=== PATIENT | female | born 1970 | race Asian ===

== ENCOUNTER 2017-02-26 08:04 | Inpatient (IN) | payer OTHER ==
[~2017-02-26] VITALS: Ht 162.6 cm; Wt 73.0 kg
[2017-02-26 09:10] LABS: BASOPHIL % 0.2 % (0-2); PLATELET COUNT 217 x10^3mcL (130-400); RED CELL DISTRIBUTION WIDTH 13.2 % (11.5-14.5)
[2017-02-26 09:12] LABS: microscopic required? NO
[2017-02-26 09:13] LABS: CALCIUM 9.1 mg/dL (8.5-10.1); CARBON DIOXIDE 23.6 mmol/L (21-32); CHLORIDE SERUM 105 mmol/L (98-107); CREATININE SERUM 0.5 mg/dL (0.6-1.0); GFR1 > 60 mL/min; GLUCOSE SERUM 144 mg/dL (74-106); POTASSIUM SERUM 3.5 mmol/L (3.5-5.1); SODIUM SERUM 135 mmol/L (136-145)
[2017-02-26] MEDS ORDERED: GEMFIBROZIL600 MG PO (09:23)
[2017-02-26] MEDS ORDERED: LITHIUM CARBON300 MG PO (09:24)
[2017-02-26] MEDS ORDERED: SEROQUEL XR200 M1 PO (09:25)
[2017-02-26] MEDS ORDERED: VENLAFAXINE HY150 MG PO (09:25)
[2017-02-26] MEDS ORDERED: ASPIR LOW81 MG PO (09:25)
[2017-02-26] MEDS ORDERED: ACT15 PO (09:26)
[2017-02-26 09:36] LABS: urine erythrocyte NEGATIVE (NEGATIVE)
[2017-02-26 09:39] LABS: AMPHETAMINE QUAL UR NONE DETECTED (NEG <=1000)
[2017-02-26 12:00] LABS: MAGNESIUM 1.8 mg/dL (1.8-2.4); PHOSPHOROUS 3.8 mg/dL (2.5-4.9)
[2017-02-26 12:04] LABS: CHOLESTEROL/HDL RATIO 2.3
[2017-02-26 12:28] LABS: FREE T4 0.83 ng/dL (0.76-1.46); T4(THYROXINE) 6.2 ug/dL (4.7-13.3)
[2017-02-26 12:33] LABS: T3 TOTAL 0.9 ng/mL
[2017-02-26 12:50] VITALS: BP 99/69
[2017-02-26] MEDS ORDERED: EPZICOM1 TAB (17:47)
[2017-02-26] MEDS ORDERED: LANTUS SOLOS100 U/M1 SQ (17:47)
[2017-02-26 18:26] VITALS: BP 134/81
[2017-02-26 19:15] VITALS: BP 141/92
[2017-02-26 23:40] VITALS: BP 115/79
[2017-02-27 03:35] VITALS: BP 133/65
[2017-02-27 04:29] LABS: BASOPHIL % 0.1 % (0-2); PLATELET COUNT 224 x10^3mcL (130-400); RED CELL DISTRIBUTION WIDTH 13.1 % (11.5-14.5)
[2017-02-27 04:35] LABS: CALCIUM 8.6 mg/dL (8.5-10.1); CARBON DIOXIDE 24.8 mmol/L (21-32); CHLORIDE SERUM 109 mmol/L (98-107); CREATININE SERUM 0.5 mg/dL (0.6-1.0); GFR1 > 60 mL/min; GLUCOSE SERUM 157 mg/dL (74-106); MAGNESIUM 1.8 mg/dL (1.8-2.4); POTASSIUM SERUM 3.9 mmol/L (3.5-5.1); SODIUM SERUM 137 mmol/L (136-145)
[2017-02-27 07:48] VITALS: BP 130/89
[2017-02-27 08:36] VITALS: Ht 162.6 cm; Wt 73.0 kg
[2017-02-27 12:30] VITALS: BP 112/87
[2017-02-27 15:13] VITALS: BP 166/97
[2017-02-27] MEDS ORDERED: GEMFIBROZIL600 MG PO (16:59)
[2017-02-27] MEDS ORDERED: SEROQUEL XR200 M1 PO (17:00)
[2017-02-27] MEDS ORDERED: LITHIUM CARBON300 MG PO (17:01)
[2017-02-27] MEDS ORDERED: VENLAFAXINE HY150 MG PO (17:04)
[2017-02-27 17:12] VITALS: BP 152/89
== END 2017-02-27 17:38 | disposition home or self-care (01) | DRG 753 ==
LOC: ED 08:04 → DU 16:11 → IC 16:11
PROVIDERS: Emergency Medicine; ADMIT Family Medicine
DX: F31.63 Bipolar disorder, current episode mixed, severe, without psychotic features (principal); E11.65 Type 2 diabetes mellitus with hyperglycemia; I10 Essential (primary) hypertension; S30.811A Abrasion of abdominal wall, initial encounter; E78.00 Pure hypercholesterolemia, unspecified; J44.1 Chronic obstructive pulmonary disease with (acute) exacerbation; D64.9 Anemia, unspecified; E78.5 Hyperlipidemia, unspecified; G47.00 Insomnia, unspecified; E87.1 Hypo-osmolality and hyponatremia; Z53.29 Procedure and treatment not carried out because of patient's decision for other reasons; E66.9 Obesity, unspecified; F17.210 Nicotine dependence, cigarettes, uncomplicated; Z98.51 Tubal ligation status; X83.8XXA Intentional self-harm by other specified means, initial encounter; Y93.89 Activity, other specified; Z79.4 Long term (current) use of insulin; Z56.0 Unemployment, unspecified; Y92.89 Other specified places as the place of occurrence of the external cause; Y99.8 Other external cause status; Z79.82 Long term (current) use of aspirin; Z79.899 Other long term (current) drug therapy; Z68.31 Body mass index [BMI] 31.0-31.9, adult; Z71.6 Tobacco abuse counseling
CPT/HCPCS: 82962; 83880; 84439; 90715; 90732; 94150; 99406; G0480; J1815; J2930; J7030; J7620; Q0092